=== PATIENT | male | born 2000 | race Caucasian/White ===

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

== ENCOUNTER 2019-01-02 11:39 | Outpatient (REF) | payer BC, MEDICAID, SELFPAY ==
[2019-01-02 21:42] LABS: Abs Immature Grans 0.01 k/cumm (0.0-0.09); Absolute Basophil Count 0.01 k/cumm (0.0-0.2); Absolute Eosinophil Count 0.41 k/cumm (0.0-0.7); Absolute Lymphocyte Count 1.98 k/cumm (1.2-3.4); Absolute Neutrophil Count 3.01 k/cumm (1.2-6.7); Basophils % 0.2; Eosinophils % 6.9; HCT 45.4 % (40.0-50.0); HGB 14.6 g/dL (13.5-17.5); Immature Grans % 0.2; Lymphocytes % 33.4; Mean Corp. HGB Concentration 32.2 g/dL (32.0-36.0); Mean Corpuscular Hemoglobin 25.2 pg (27.0-33.0); Mean Corpuscular Volume 78.3 fL (80-95); Mean Platelet Volume 9.7 fL (8.0-11.0); Monocytes % 8.4; Neutrophils % 50.9; Platelet Count 351 x1000/uL (130-400); RBC Distribution Width 14.9 % (11.8-14.1); Reticulocyte 1.3 % (0.5-2.4); White Blood Cell Count 5.92 k/cumm (4.4-10.8)
[2019-01-02 22:13] LABS: Iron 60 ug/dL (50-175); Total Iron Binding Capacity 285 ug/dL (250-450); Transferrin Sat 21 % (20-55)
[2019-01-02 22:14] LABS: Microcytosis 1+
[2019-01-02 22:24] LABS: Ferritin 64 ng/mL (8-388)
== END 2019-01-02 11:59 ==
LOC: NCHCN 11:39
PROVIDERS: PCP Family Medicine; Visit Provider Family Medicine
DX: R71.8 Other abnormality of red blood cells (principal)
CPT/HCPCS: 82728; 83540; 83550; 85025; 85045

== ENCOUNTER 2024-02-27 16:59 | Outpatient (REF) | payer MEDICAID, SELFPAY ==
[2024-02-27 22:22] LABS: ALT 24 U/L (16-63); AST 21 U/L (15-37); Albumin 3.8 g/dL (3.4-5.0); Alkaline Phosphatase 91 U/L (46-116); Anion Gap 9.1 mmol/L (3-11); BUN 13 mg/dL (7-18); Bilirubin, Total 0.26 mg/dL (0.2-1.0); CO2 27.9 mmol/L (21.0-32.0); CREATININE 1.2 mg/dL (0.70-1.30); Calcium 9.6 mg/dL (8.5-10.1); Calculated LDL 82 mg/dL (<100); Chloride 105 mmol/L (98-107); Cholesterol 158 mg/dL (<200); Glucose 82 mg/dL (74-106); HDL Cholesterol 69 mg/dL (40-60); Potassium 4.1 mmol/L (3.5-5.1); Sodium 142 mmol/L (136-145); Total Protein 8.6 g/dL (6.4-8.2); Triglyceride 35 mg/dL (<150); Vitamin D 25 Total 9.1 ng/mL (30-100)
== END 2024-02-27 17:00 | disposition home or self-care (01) ==
LOC: NCHCN 16:59
PROVIDERS: PCP Family Medicine; Visit Provider Family Medicine
DX: Z00.00 Encounter for general adult medical examination without abnormal findings (principal)
CPT/HCPCS: 80053; 80061; 82306; 83036